=== PATIENT | female | born 2005 | race Caucasian/White ===

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

== ENCOUNTER 2025-03-20 04:20 | Emergency (ER) | payer OTHER ==
[2025-03-20 04:35] VITALS: BP 122/72; PULSE 99; RESP 20; TEMP 99.3; BMI 28.1
[2025-03-20] MEDS ORDERED: ACETAMINOPHEN 325 MG TABLET (FP) ONE (05:50)
[2025-03-20] MEDS: ACETAMINOPHEN 500 MG TABLET (FP) PO ONE (05:57)
== END 2025-03-20 06:00 | disposition home or self-care (01) ==
LOC: JER 04:20
DX: H60.92 Unspecified otitis externa, left ear (principal); H92.02 Otalgia, left ear
CPT/HCPCS: 99283-25